=== PATIENT | male | born 1930 | race Caucasian/White ===

== ENCOUNTER 2017-08-31 22:10 | Emergency (ER) | payer MEDICARE ==
[~2017-08-31] VITALS: Ht 182.9 cm; Wt 82.0 kg
[~2017-08-31 22:10] MED LIST: ACET325T21 PO; AMLO5TAB4 PO; APIX5TAB PO; ASPI-515 PO; ASPI325T17 PO; ASPI325T80 PO; ATOR40TA78 PO; CEFD300C37 PO; CHOL10003 PO; DOCU-131 PO; DOXY100T PO; ERGO500017 PO; Enoxaparin Sodium SQ; FURO-93 PO; GABA-826 PO; GLIM4TAB2 PO; HYDR-3237 PO; HYDR-3240 PO; INSU100I17 SQ; INSU100I28 SQ-INSULIN; INSU100I7 SQ-INSULIN; LEVO25TA2 PO; LISI-170 PO; METF500T9 PO; METO-93 PO; METO25TA91 PO; POLY17PO5 PO; POTA10TA6 PO; SENN1TAB7 PO; TAMS-11 PO; WARF5TAB PO
[2017-08-31] MEDS ORDERED: DIPH,PERTUSS(ACELL),TET VAC/PF 0.5 ML IM-VACC ONE ×2 (22:30→22:33)
[2017-08-31] MEDS ORDERED: BACITRACIN ZINC OINT 500U/GM, 0.9 GM ONE (22:35)
[2017-09-01 00:07] VITALS: BP 159/65
== END 2017-09-01 00:09 | disposition home or self-care (01) ==
LOC: ED 22:35
DX: S30.0XXA Contusion of lower back and pelvis, initial encounter (principal); S50.812A Abrasion of left forearm, initial encounter; S50.312A Abrasion of left elbow, initial encounter; I10 Essential (primary) hypertension; E11.9 Type 2 diabetes mellitus without complications; I25.2 Old myocardial infarction; I25.10 Atherosclerotic heart disease of native coronary artery without angina pectoris; W01.198A Fall on same level from slipping, tripping and stumbling with subsequent striking against other object, initial encounter; Y93.89 Activity, other specified; Y92.090 Kitchen in other non-institutional residence as the place of occurrence of the external cause; Y99.8 Other external cause status
CPT/HCPCS: 74176; 90471; 90715